=== PATIENT | female | born 1940 | race Caucasian/White ===

== ENCOUNTER 2021-12-18 10:22 | Outpatient (CLI) | payer MEDICARE, BC | END 2021-12-18 10:23 | disposition home or self-care (01) | LOC: CSHMAMMO 10:22 | PROVIDERS: ATTEND Family Medicine Sports Medicine | DX: Z12.31 Encounter for screening mammogram for malignant neoplasm of breast (principal) | CPT/HCPCS: 77063; 77067 ==

== ENCOUNTER 2023-07-07 15:02 | Outpatient (CLI) | payer BC, MEDICARE | END 2023-07-07 15:03 | disposition home or self-care (01) | LOC: CSHMAMMO 15:02 | PROVIDERS: ATTEND Family Medicine Sports Medicine | DX: M81.0 Age-related osteoporosis without current pathological fracture (principal); Z78.0 Asymptomatic menopausal state | CPT/HCPCS: 77080 ==

== ENCOUNTER 2023-09-03 13:15 | Outpatient (CLI) | payer MEDICARE | END 2023-09-03 13:16 | disposition home or self-care (01) | LOC: CSHRAD 13:15 | PROVIDERS: ATTEND Family Medicine Sports Medicine | DX: M81.0 Age-related osteoporosis without current pathological fracture (principal); M85.88 Other specified disorders of bone density and structure, other site; M43.8X5 Other specified deforming dorsopathies, thoracolumbar region; S22.000D Wedge compression fracture of unspecified thoracic vertebra, subsequent encounter for fracture with routine healing | CPT/HCPCS: 72070 ==